=== PATIENT | female | born 1935 | race Caucasian/White ===

== ENCOUNTER 2018-11-03 20:37 | Emergency (ER) | payer SELFPAY, MEDICAID | END 2018-11-04 02:38 | disposition left against medical advice (07) | LOC: E/R 20:37 | DX: Z53.21 Procedure and treatment not carried out due to patient leaving prior to being seen by health care provider (principal) ==

== ENCOUNTER 2018-12-26 11:02 | Inpatient (IN) | payer MEDICARE, OTHER, MEDICAID ==
[2018-12-26] MEDS: SOD CHLORIDE 0.9% 1,000 ML IV (12:21)
[2018-12-26 12:35] LABS: ADD MAN DIFF? NO
[2018-12-26 12:37] LABS: WHITE BLOOD COUNT 8.5 10^3/ul (4.8-10.8)
[2018-12-26 12:37] LABS: BASOPHILS % 0.4 % (0.0-2.0); EOSINOPHILS % 0.1 % (0.0-7.0); HEMATOCRIT 37.3 % (37.0-47.0); HEMOGLOBIN 13.5 g/dl (12.0-16.0); LYMPHOCYTES # 1.5 10^3/ul (0.8-2.9); LYMPHOCYTES % 17.5 % (15.0-51.0); MEAN CORPUSCULAR HEMOGLOBIN 30.5 pg (29.0-33.0); MEAN CORPUSCULAR HGB CONC 36.2 g/dl (32.0-37.0); MEAN CORPUSCULAR VOLUME 84.4 fl (82.0-101.0); MEAN PLATELET VOLUME 8.9 fl (7.4-10.4); MONOCYTE # 0.4 10^3/ul (0.3-0.9); MONOCYTES % 4.7 % (0.0-11.0); NEUTROPHIL # 6.5 10^3/ul (1.6-7.5); NEUTROPHILS % 76.9 % (39.0-77.0); PLATELET COUNT 314 10^3/UL (140-415); RED BLOOD COUNT 4.42 10^6/ul (4.20-5.40); RED CELL DISTRIBUTION WIDTH 11.9 % (11.5-14.5)
[2018-12-26 12:42] LABS: ADD UMIC YES; UR AMORPHOUS CRYSTAL FEW /HPF (NONE SEEN); UR ASCORBIC ACID NEGATIVE (NEGATIVE); UR BILIRUBIN (Dip) NEGATIVE (NEGATIVE); UR BLOOD (Dip) 1+ mg/dL (NEGATIVE); UR CLARITY SLIGHTLY CLOUDY (CLEAR); UR COLOR YELLOW (YELLOW); UR GLUCOSE (Dip) NEGATIVE (NEGATIVE); UR KETONES (Dip) NEGATIVE (NEGATIVE); UR LEUKOCYTE ESTERASE (Dip) NEGATIVE Leu/ul (NEGATIVE); UR NITRITE (Dip) NEGATIVE (NEGATIVE); UR RBC 19 /HPF (0-5); UR TOTAL PROTEIN (Dip) NEGATIVE (NEGATIVE); UR UROBILINOGEN (Dip) NEGATIVE (NEGATIVE); UR WBC 2 /HPF (0-5)
[2018-12-26 12:43] LABS: ALANINE AMINOTRANSFERASE 27 IU/L (13-69); ALBUMIN 4.9 g/dl (3.3-4.9); ALBUMIN/GLOBULIN RATIO 1.13; ALKALINE PHOSPHATASE 53 IU/L (42-121); ANION GAP 14 (5-13); ASPARTATE AMINO TRANSFERASE 45 IU/L (15-46); BILIRUBIN,INDIRECT 0.8 mg/dl (0-1.1); BILIRUBIN,TOTAL 0.8 mg/dl (0.2-1.3); BLOOD UREA NITROGEN 9 mg/dl (7-20); CALCIUM 9.6 mg/dl (8.4-10.2); CARBON DIOXIDE 22 mmol/L (21-31); CHLORIDE 88 mmol/L (97-110); CREATININE 0.54 mg/dl (0.44-1.00); GLUCOSE 126 mg/dl (70-220); LIPASE 61 U/L (23-300); POTASSIUM 4.1 mmol/L (3.5-5.1); SODIUM 124 mmol/L (135-144); TOTAL PROTEIN 9.2 g/dl (6.1-8.1)
[2018-12-26 12:54] LABS: TROPONIN-I < 0.012 ng/ml (0.000-0.120)
[2018-12-26] MEDS: IOHEXOL 300MG/ML 150 ML BTL (13:50)
[2018-12-26] MEDS: SOD CHLORIDE 0.9% 100 ML (13:51)
[2018-12-26 14:03] LABS: INR 0.99; PROTIME 13.2 Sec (11.9-14.9)
[2018-12-26 14:04] LABS: PARTIAL THROMBOPLASTIN TIME 32.7 Sec (23.0-35.0)
[2018-12-26 14:13] LABS: C-REACTIVE PROTEIN < 0.5 mg/dl (0.0-0.9)
[2018-12-26 15:07] LABS: ERYTHROCYTE SEDIMENTATION RATE 23 mm/Hr (0-30)
[2018-12-26] MEDS: KETOROLAC 15 MG INJ IV (15:07)
[2018-12-26] MEDS: FAMOTIDINE 20 MG INJ IV (20:18)
[2018-12-26] MEDS: DEXAMETHASONE 10 MG/ML 1 ML INJ IV (20:19)
[2018-12-26] MEDS: DEXTROSE 5%-0.9% NACL 1,000 ML IV (20:24)
[2018-12-27] MEDS ORDERED: DEXAMETHASONE 10 MG/ML 1 ML INJ IV
[2018-12-27] MEDS: DEXAMETHASONE 4 MG/ML 1 ML INJ IV ×5 (01:03→23:12)
[2018-12-27 06:42] LABS: ANION GAP 11 (5-13); BLOOD UREA NITROGEN 11 mg/dl (7-20); CALCIUM 9.6 mg/dl (8.4-10.2); CARBON DIOXIDE 19 mmol/L (21-31); CHLORIDE 97 mmol/L (97-110); GLUCOSE 169 mg/dl (70-220); POTASSIUM 3.8 mmol/L (3.5-5.1); SODIUM 127 mmol/L (135-144)
[2018-12-27] MEDS: FAMOTIDINE 20 MG INJ IV ×2 (08:10→21:20)
[2018-12-27] MEDS: DEXTROSE 5%-0.9% NACL 1,000 ML IV ×2 (08:11→18:43)
[2018-12-28] MEDS: DEXAMETHASONE 4 MG/ML 1 ML INJ IV ×3 (06:14→17:51)
[2018-12-28] MEDS: DEXTROSE 5%-0.9% NACL 1,000 ML IV (06:18)
[2018-12-28] MEDS: FAMOTIDINE 20 MG INJ IV (11:14)
[2018-12-28] MEDS: LIDOCAINE 1% (MPF) 5 ML VIAL (12:53)
[2018-12-28] MEDS: LIDOCAINE 1% (MDV) 20 ML INJ (12:54)
== END 2018-12-28 18:32 | DRG 55 ==
LOC: 6WM 12-28 01:39 → E/R 11:02 → 6WM 13:24
PROVIDERS: Internal Medicine
DX: C79.31 Secondary malignant neoplasm of brain (principal); C34.91 Malignant neoplasm of unspecified part of right bronchus or lung; E87.1 Hypo-osmolality and hyponatremia; R41.82 Altered mental status, unspecified; I10 Essential (primary) hypertension; E03.9 Hypothyroidism, unspecified; F03.90 Unspecified dementia, unspecified severity, without behavioral disturbance, psychotic disturbance, mood disturbance, and anxiety
CPT/HCPCS: 36415; 70450; 70553; 71045; 71250; 71260; 74177; 80048; 80053; 81001; 82962; 83690; 84484; 85025; 85610; 85651; 85730; 86140; 87086; 93005; 97161; 99285-25